=== PATIENT | female | born 1970 | race Caucasian/White ===

== ENCOUNTER 2018-10-21 07:35 | Emergency (ER) | payer SELFPAY ==
[2018-10-21 08:30] LABS: #Basophils 0.1 thou/uL (0.0-0.2); #Eosinphils 0.2 thou/uL (0.0-0.7); #Lymphocytes 2.3 thou/uL (1.20-3.40); #Monocytes 1.2 thou/uL (0.11-0.59); #Neutrophils 13.8 thou/uL (1.40-6.50); %Basophils 0.3 % (0.0-1.0); %Eosinophils 0.9 % (0.0-10.0); %Monocytes 6.7 % (0.0-10.0); %Neutrophils 79.1 % (42.0-75.0); Hemoglobin 17.4 g/dL (12.0-16.0); Mean Corpuscular HGB CONC 33.3 g/dL (32.0-36.0); Mean Corpuscular Hemoglobin 30.7 pg (27.0-31.0); Mean Corpuscular Volume 92.1 fL (78.0-98.0); Mean Platelet Volume 9.2 fL (7.4-10.4); Platelet Count 162 thou/uL (130-400); RBC Distribution Width 11.9 % (11.5-14.5); Red Blood Cell (RBC) Count 5.68 mill/uL (4.20-5.40); White Blood Cell (WBC) Count 17.4 thou/uL (4.8-10.8)
[2018-10-21] MEDS ORDERED: Ondansetron PF 4 MG/2 ML Vial ONE (08:43)
[2018-10-21] MEDS ORDERED: Lidocaine 1% PF 5 ML VIAL ONE (08:46)
[2018-10-21 08:50] LABS: ALT (SGPT) 77 U/L (8-55); AST (SGOT) 44 U/L (5-34); Albumin 3.4 g/dL (3.5-5.0); Alkaline Phosphatase 184 U/L (40-150); Anion Gap 16 mmol/L (10-20); BUN (Urea Nitrogen) 16 mg/dL (7.0-18.7); Bilirubin, Total 0.7 mg/dL (0.2-1.2); Calc. Creatinine Clearance 0 mL/min (70-130); Calcium 9.4 mg/dL (7.8-10.44); Carbon Dioxide 22 mmol/L (22-29); Chloride 98 mmol/L (98-107); Estimated GFR-MDRD 85; Globulin 4.8 g/dL (2.4-3.5); Glucose 370 mg/dL (70-105); Potassium 4.1 mmol/L (3.5-5.1); Protein, Total 8.2 g/dL (6.0-8.3); Sodium 132 mmol/L (136-145)
[2018-10-21] MEDS ORDERED: Lidocaine 1% (PF) 30 ML VIAL ONE (09:00)
[2018-10-21] MEDS ORDERED: Morphine 4 MG/ML VIAL ONE (09:12)
--- NOTE | 2018-10-21 09:20 | RAD ---
PA AND LATERAL VIEWS OF CHEST: Date: 10/21/18 HISTORY: Flu-like symptoms, cough, dyspnea, diabetes, and hypertension. FINDINGS: The heart size is normal. The lungs are expanded without focal areas of consolidation, pneumothoraces , or pleural effusion. No acute osseous abnormalities are seen. IMPRESSION: No radiographic evidence of acute cardiopulmonary process. POS: [facility]
[2018-10-21 10:21] LABS: Bilirubin Negative (Negative); Blood, Urine Large (Negative); Clarity CLOUDY (Clear); Glucose, Urine (Dipstick) >=1000 mg/dL (Negative); Leukocyte Small (Negative); Nitrite Negative (Negative); Protein, Urine (Dipstick) 30 mg/dL (Neg-Trace); Specific Gravity, Urine 1.041 (1.002-1.036); Urobilinogen 0.2 mg/dL (0.2-1.0); pH, Urine 5.5 (5.0-9.0)
[2018-10-21 10:23] LABS: Bacteria/HPF None Seen HPF (None Seen); Hyaline Casts/LPF 0-3 HYALINE CAST LPF (0-3 Hyaline); Pathc Cast-AUWi Flag 0.43 (0-2.49); Squamous Epithelial 0-3 HPF (0-3); WBC/HPF 21-50 HPF (0-3)
[2018-10-21 10:36] LABS: Yeast-All Forms 1+ HPF (None Seen)
[2018-10-21] MEDS ORDERED: Insulin Regular 300 UNITS/3 ML VIAL ONE (10:40)
== END 2018-10-21 11:15 | disposition home or self-care (01) ==
LOC: ERS 07:35
DX: L02.215 Cutaneous abscess of perineum (principal); B37.3 Candidiasis of vulva and vagina; E11.65 Type 2 diabetes mellitus with hyperglycemia; N39.0 Urinary tract infection, site not specified; E78.5 Hyperlipidemia, unspecified; I10 Essential (primary) hypertension; F17.210 Nicotine dependence, cigarettes, uncomplicated
CPT/HCPCS: 36415; 56405; 71046; 80053; 81003; 81015; 85025; 87070; 87077; 87086; 96365; 96375; J1815; J2001; J2270; J2405

== ENCOUNTER 2018-10-25 09:24 | Emergency (ER) | payer SELFPAY ==
[2018-10-25] MEDS ORDERED: Lidocaine 1% (PF) 30 ML VIAL ONE (09:51)
[2018-10-25] MEDS ORDERED: HYDROcodone/Acetaminophen 10/325 mg Tablet ONE (09:57)
[2018-10-25] MEDS ORDERED: Ondansetron ODT 4 MG TAB ONE (10:02)
[2018-10-25] MEDS ORDERED: Bacitracin Zinc 1 Packet ONE (10:48)
== END 2018-10-25 11:13 | disposition home or self-care (01) ==
LOC: ERS 09:24
DX: Z48.817 Encounter for surgical aftercare following surgery on the skin and subcutaneous tissue (principal); E11.9 Type 2 diabetes mellitus without complications; E78.5 Hyperlipidemia, unspecified; I10 Essential (primary) hypertension; F32.9 Major depressive disorder, single episode, unspecified; F17.210 Nicotine dependence, cigarettes, uncomplicated; Z79.899 Other long term (current) drug therapy; Z71.6 Tobacco abuse counseling
CPT/HCPCS: 56405; 99406; J2001; Q0162

== ENCOUNTER 2018-10-27 08:44 | Emergency (ER) | payer SELFPAY ==
[2018-10-27] MEDS ORDERED: HYDROcodone/Acetaminophen 5/325 mg Tablet ONE (09:15)
== END 2018-10-27 09:51 | disposition home or self-care (01) ==
LOC: ERS 08:44
DX: N76.4 Abscess of vulva (principal); E11.9 Type 2 diabetes mellitus without complications; I10 Essential (primary) hypertension; F32.9 Major depressive disorder, single episode, unspecified; F17.210 Nicotine dependence, cigarettes, uncomplicated; Z79.899 Other long term (current) drug therapy
CPT/HCPCS: 99282

== ENCOUNTER 2019-04-12 08:08 | Emergency (ER) | payer SELFPAY ==
--- NOTE | 2019-04-12 10:11 | CT ---
CT Brain WO Con History: Blurry vision Comparison: None. Findings: No acute hemorrhage or infarct. No midline shift or mass effect. Ventricular size and extra -axial CSF spaces are normal. Calvarium is intact. Paranasal sinuses and mastoids are clear. Impression: No acute intracranial abnormality.
[2019-04-12 10:15] LABS: #Eosinphils 0.3 thou/uL (0.0-0.7); #Lymphocytes 2.4 thou/uL (1.20-3.40); #Monocytes 0.4 thou/uL (0.11-0.59); #Neutrophils 5.4 thou/uL (1.40-6.50); %Basophils 0.6 % (0.0-1.0); %Eosinophils 3.1 % (0.0-10.0); %Lymphocytes 28.5 % (21.0-51.0); %Monocytes 4.6 % (0.0-10.0); %Neutrophils 63.3 % (42.0-75.0); Hemoglobin 16.3 g/dL (12.0-16.0); Mean Corpuscular HGB CONC 32.9 g/dL (32.0-36.0); Mean Corpuscular Hemoglobin 31.1 pg (27.0-31.0); Mean Corpuscular Volume 94.6 fL (78.0-98.0); Mean Platelet Volume 9.5 fL (7.4-10.4); Platelet Count 117 thou/uL (130-400); RBC Distribution Width 12.1 % (11.5-14.5); Red Blood Cell (RBC) Count 5.25 mill/uL (4.20-5.40); White Blood Cell (WBC) Count 8.6 thou/uL (4.8-10.8)
[2019-04-12 10:30] LABS: ALT (SGPT) 145 U/L (8-55); AST (SGOT) 110 U/L (5-34); Albumin 3.4 g/dL (3.5-5.0); Alkaline Phosphatase 260 U/L (40-150); Anion Gap 9 mmol/L (10-20); BUN (Urea Nitrogen) 18 mg/dL (7.0-18.7); Bilirubin, Total 0.5 mg/dL (0.2-1.2); Calc. Creatinine Clearance 0 mL/min (70-130); Calcium 9.4 mg/dL (7.8-10.44); Carbon Dioxide 29 mmol/L (22-29); Chloride 101 mmol/L (98-107); Estimated GFR-MDRD Greater than 90; Globulin 4.1 g/dL (2.4-3.5); Glucose 218 mg/dL (70-105); Potassium 4.6 mmol/L (3.5-5.1); Protein, Total 7.5 g/dL (6.0-8.3); Sodium 134 mmol/L (136-145)
[2019-04-12] MEDS ORDERED: Aspirin Chewable 81 MG TAB ONE (11:15)
--- NOTE | 2019-04-16 16:10 | EKG ---
Test Reason : BLURRED VISION Blood Pressure : / mmHG Vent. Rate : 063 BPM Atrial Rate : 063 BPM P-R Int : 126 ms QRS Dur : 092 ms QT Int : 442 ms P-R-T Axes : 048 -33 062 degrees QTc Int : 452 ms Normal sinus rhythm Possible Left atrial enlargement Left axis deviation Abnormal ECG Confirmed by BJ URRUTIA M.D. ([id number]), newspaper editor managing ROSANA HARPER ([id number]) on 04/16/2019 4:10:03 PM Referred By: Confirmed By:BJ URRUTIA M.D.
== END 2019-04-12 12:45 | disposition home or self-care (01) ==
LOC: ERS 08:08
DX: H53.8 Other visual disturbances (principal); E11.9 Type 2 diabetes mellitus without complications; I10 Essential (primary) hypertension; F17.210 Nicotine dependence, cigarettes, uncomplicated; Z79.899 Other long term (current) drug therapy; Z79.4 Long term (current) use of insulin
CPT/HCPCS: 36415; 36416; 70450; 80053; 84484; 85025; 93005

== ENCOUNTER 2019-11-29 09:17 | Outpatient (CLI) | payer OTHER ==
--- NOTE | 2019-11-29 10:29 | CT ---
CT ABDOMEN AND PELVIS WITH IV CONTRAST 11/29/2019 CLINICAL INFORMATION: Secondary malignant neoplasm of bone. Chronic viral hepatitis. COMPARISON: 06/30/2017 Technique: Multiple contiguous axial CT images are obtained through the abdomen and pelvis with IV contrast. Cor onal reformatted images are provided. FINDINGS: Lower Chest: No pulmonary nodule is seen at either lung base. Lung bases are clear. Vessels: Mild vascular calcifications and atherosclerotic plaque is seen in the abdominal aorta and i nvolving the iliac arteries. Abdomen: Portal vein:There is diminished attenuation seen within the portal vein and superior mesenteric vein which appears to to be related to mixing of contrast. Gallbladder: Not visualized and likely surgically absent. Liver: Slight peripheral nodular contour which may be related to cirrhosis. Spleen: Upper limits of normal in size but otherwise normal in appearance. Pancreas: within normal limits. Adrenals: within normal limits. Kidneys: A subcentimeter too small to characterize hypodense lesion is seen in the superior pole left kidney. Kidneys otherwise demonstrate a normal CT appearance bilaterally with mild lobulated appearance which may related to lobulation. Bowel: Normal in caliber. The ascending colon is adjacent to the lateral aspect of the lower portion of the right hepatic lobe. Appendix: Normal in caliber. Peritoneum: No ascites or free air; no fluid collection. Mesentery and Retroperitoneum: No enlarged mesenteric or retroperitoneal lymph nodes. Abdominal Wall: within normal limits. Pelvis: Reproductive Organs: No pelvic masses. Pelvis within normal limits. Bladder: Decompressed. Bones: No suspicious sclerotic or lytic osseous lesions are identified. IMPRESSION: 1. No acute findings are seen in the abdomen or pelvis. 2. Slight nodular contour of the liver which can be seen with cirrhosis. The portal veins are patent. 3. No CT evidence of metastatic disease.
--- NOTE | 2019-11-29 12:24 | MRI ---
MRI OF THE LEFT KNEE WITH AND WITHOUT IV CONTRAST: INDICATION: History of secondary malignancy of the bone and a chronic viral hepatitis C. CONTRAST: 12 cc of MultiHance. COMPARISON: Left knee radiograph dated 10/22/2019. FINDINGS: As seen on the comparison radiograph is a split depression-type lateral tibial plateau fracture with approximately 2.1 cm of depression of the central lateral aspect of the tibial plateau articular surface. There is extensive comminution involving the metaphysis of the proximal tibia extending into the tibial spines and along the posterior medial aspect of the medial tibial plateau without significant intraarticular gap. The comminution involving the posterior aspect of the medial tibial p lateau does have approximately 2 mm of articular surface step-off best seen on image 6 of series 7. No visible abnormal enhancing mass is seen involving the proximal metaphysis to suggest a pathologic fracture. Visualized aspects of the menisci, ACL, PCL, MCL and lateral collateral ligaments are intact. The extensor mechanism is intact. There is mild osteoarthrosis involving the left knee with m oderate chondrosis involving the patellofemoral compartment as well as the medial femoral tibial joint compartment. There is enhancement of the marrow space of the proximal tibia which is likely rel ated to reactive healing bone from the patient's trauma. IMPRESSION: Heavily comminuted split depression-type lateral tibial plateau fracture with fracture comminution ex tending into the posterior aspect of the medial tibial plateau with mild articular surface depression. There is no evidence on this MR examination to suggest a pathologic fracture. This appear s to be an acute traumatic injury and possibly from insufficiency of the bone. Transcribed Date/Time: 11/29/2019 1:49 PM
[2019-11-29] MEDS ORDERED: Iopamidol 370 76% 100 ML VIAL ONE (13:55)
== END 2019-11-29 09:18 | disposition home or self-care (01) ==
LOC: CT 09:17
PROVIDERS: ATTEND Internal Medicine Hematology & Oncology
DX: C79.51 Secondary malignant neoplasm of bone (principal); C80.1 Malignant (primary) neoplasm, unspecified; B18.2 Chronic viral hepatitis C; S82.142A Displaced bicondylar fracture of left tibia, initial encounter for closed fracture; K76.89 Other specified diseases of liver
CPT/HCPCS: 74177; Q9967

== ENCOUNTER 2019-12-15 10:28 | Outpatient (CLI) | payer OTHER ==
[2019-12-15 14:58] LABS: #Basophils 0.1 thou/uL (0.0-0.2); #Eosinphils 0.2 thou/uL (0.0-0.7); #Lymphocytes 2.7 thou/uL (1.20-3.40); #Monocytes 0.5 thou/uL (0.11-0.59); #Neutrophils 6.9 thou/uL (1.40-6.50); %Basophils 0.8 % (0.0-1.0); %Eosinophils 2.2 % (0.0-10.0); %Lymphocytes 25.9 % (21.0-51.0); %Monocytes 4.4 % (0.0-10.0); %Neutrophils 66.8 % (42.0-75.0); Hemoglobin 15.8 g/dL (12.0-16.0); Mean Corpuscular HGB CONC 32.5 g/dL (32.0-36.0); Mean Corpuscular Hemoglobin 30.4 pg (27.0-31.0); Mean Corpuscular Volume 93.6 fL (78.0-98.0); Mean Platelet Volume 8.9 fL (7.4-10.4); Platelet Count 153 thou/uL (130-400); RBC Distribution Width 12.3 % (11.5-14.5); Red Blood Cell (RBC) Count 5.19 mill/uL (4.20-5.40); White Blood Cell (WBC) Count 10.3 thou/uL (4.8-10.8)
[2019-12-15 15:09] LABS: Bacteria/HPF None Seen HPF (None Seen); Bilirubin Negative (Negative); Blood, Urine Trace (Negative); Clarity Clear (Clear); Glucose, Urine (Dipstick) 30 mg/dL (Negative); Leukocyte Negative Leu/uL (Negative); Nitrite Negative (Negative); Protein, Urine (Dipstick) 70 mg/dL (Neg-Trace); WBC/HPF 0-3 HPF (0-3)
[2019-12-15 15:10] LABS: Prothrombin Time 12.8 SEC (12.0-14.7)
[2019-12-15 15:22] LABS: Anion Gap 10 mmol/L (10-20); BUN (Urea Nitrogen) 15 mg/dL (7.0-18.7); Calc. Creatinine Clearance 0 mL/min (70-130); Calcium 9.4 mg/dL (7.8-10.44); Carbon Dioxide 29 mmol/L (22-29); Chloride 102 mmol/L (98-107); Estimated GFR-MDRD 90; Glucose 169 mg/dL (70-105); Potassium 4.1 mmol/L (3.5-5.1); Sodium 137 mmol/L (136-145)
== END 2019-12-15 10:29 | disposition home or self-care (01) ==
LOC: LABBT 10:28
PROVIDERS: ATTEND Orthopaedic Surgery
DX: Z01.818 Encounter for other preprocedural examination (principal); S82.142A Displaced bicondylar fracture of left tibia, initial encounter for closed fracture
CPT/HCPCS: 80048; 81001; 85025; 85610; 87081; 93005; 93010

== ENCOUNTER 2020-05-11 05:06 | Outpatient (CLI) | payer OTHER ==
[2020-05-11 14:00] LABS: #Basophils 0.1 thou/uL (0.0-0.2); #Eosinphils 0.2 thou/uL (0.0-0.7); #Lymphocytes 2.1 thou/uL (1.20-3.40); #Monocytes 0.4 thou/uL (0.11-0.59); #Neutrophils 5.4 thou/uL (1.40-6.50); %Basophils 0.8 % (0.0-1.0); %Eosinophils 2.6 % (0.0-10.0); %Lymphocytes 25.6 % (21.0-51.0); %Monocytes 4.5 % (0.0-10.0); %Neutrophils 66.5 % (42.0-75.0); Hemoglobin 15.5 g/dL (12.0-16.0); Mean Corpuscular Hemoglobin 29.4 pg (27.0-31.0); Mean Corpuscular Volume 91.7 fL (78.0-98.0); Mean Platelet Volume 9.7 fL (7.4-10.4); Platelet Count 138 thou/uL (130-400); RBC Distribution Width 12.9 % (11.5-14.5); Red Blood Cell (RBC) Count 5.27 mill/uL (4.20-5.40); White Blood Cell (WBC) Count 8.1 thou/uL (4.8-10.8)
[2020-05-11 14:02] LABS: INR-International Normal Ratio 0.9; Prothrombin Time 12.4 sec (12.0-14.7)
[2020-05-11 14:05] LABS: Anion Gap 10 mmol/L (10-20); BUN (Urea Nitrogen) 12 mg/dL (9.8-20.1); Calc. Creatinine Clearance 0 mL/min (70-130); Calcium 8.7 mg/dL (7.8-10.44); Carbon Dioxide 29 mmol/L (22-29); Chloride 101 mmol/L (98-107); Estimated GFR-MDRD 72; Glucose 377 mg/dL (70-105); Potassium 4.1 mmol/L (3.5-5.1); Sodium 136 mmol/L (136-145)
[2020-05-11 15:06] LABS: Bacteria/HPF None Seen HPF (None Seen); Bilirubin Negative (Negative); Blood, Urine 1+ (Negative); Clarity Clear (Clear); Glucose, Urine (Dipstick) Greater than 1000 mg/dL (Negative); Ketone, Urine Negative (Negative); Leukocyte Negative Leu/uL (Negative); Nitrite Negative (Negative); Protein, Urine (Dipstick) 20 mg/dL (Neg-Trace); Specific Gravity, Urine 1.035 (1.002-1.036); WBC/HPF 0-3 HPF (0-3)
[2020-05-12 12:37] LABS: SARS-CoV-2 MS2 Positive; SARS-CoV-2 N Gene Negative; SARS-CoV-2 S Gene Negative; SARS-CoV-2 orf1ab Negative
== END 2020-05-11 05:07 | disposition home or self-care (01) ==
LOC: LABBT 05:06
PROVIDERS: ATTEND Orthopaedic Surgery
DX: Z01.818 Encounter for other preprocedural examination (principal); Z11.59 Encounter for screening for other viral diseases; S82.142A Displaced bicondylar fracture of left tibia, initial encounter for closed fracture
CPT/HCPCS: 80048; 81001; 85025; 85610; 87081; 87635; 93005; 93010; U0003

== ENCOUNTER 2020-05-11 11:15 | Inpatient (IN) | payer OTHER ==
[2020-05-15] MEDS ORDERED: Midazolam HCl 2 mg/2 ml Vial ONE ×2 (09:34→11:18)
[2020-05-15] MEDS ORDERED: Fentanyl 100 MCG/2 ML VIAL ONE ×4 (09:34→13:36)
[2020-05-15] MEDS ORDERED: Sodium Chloride 0.9% 100 ML ONE (09:46)
[2020-05-15] MEDS ORDERED: Tranexamic Acid 1,000 MG/10 ML VIAL ONE (09:46)
[2020-05-15] MEDS ORDERED: Vancomycin 1 GM/200 ML BAG ONE (09:46)
[2020-05-15] MEDS ORDERED: diphenhydrAMINE 25 MG CAP PO PRN (10:52)
[2020-05-15] MEDS ORDERED: Ondansetron PF 4 MG/2 ML Vial IVP PRN ×2 (10:52→11:03)
[2020-05-15] MEDS ORDERED: Zolpidem Tartrate 5 MG TAB PO PRN ×2 (10:52→11:03)
[2020-05-15] MEDS ORDERED: Promethazine HCl 25 MG/ML VIAL IM PRN ×3 (10:52→12:48)
[2020-05-15] MEDS ORDERED: Acetaminophen 325 MG TAB PO PRN ×2 (10:52→11:03)
[2020-05-15] MEDS ORDERED: HYDROcodone/Acetaminophen 10/325 mg Tablet PO PRN ×2 (10:52)
[2020-05-15] MEDS ORDERED: traMADol HCl 50 MG TAB PO PRN ×2 (11:03)
[2020-05-15] MEDS ORDERED: Ropivacaine HCl/PF 250 ML in Premix Bag 1 BAG NERVE BLCK SCH (11:03)
[2020-05-15] MEDS ORDERED: Fentanyl 100 MCG/2 ML VIAL IV PRN (11:03)
[2020-05-15] MEDS ORDERED: Bupivacaine HCl 0.5%/Epinephrine 1:200,000/PF 30 ml Vial ONE ×2 (12:19→12:20)
[2020-05-15] MEDS ORDERED: Dexamethasone 20 MG/5 ML VIAL ONE (12:19)
[2020-05-15] MEDS ORDERED: Ketorolac Tromethamine 30 MG/ML VIAL ONE (12:19)
[2020-05-15] MEDS ORDERED: EPHEDRINE 25 MG/5 ML SYRINGE ONE (12:19)
[2020-05-15] MEDS ORDERED: Ondansetron PF 4 MG/2 ML Vial ONE (12:19)
[2020-05-15] MEDS ORDERED: PROPOFOL 200 MG/20 ML VIAL ONE (12:19)
[2020-05-15] MEDS ORDERED: Ropivacaine 0.2% HCl/PF (40 MG/20 ML VIAL) ONE (12:20)
[2020-05-15] MEDS ORDERED: Ondansetron HCl/PF 4 MG/2 ML Vial IVP PRN (12:48)
[2020-05-15] MEDS ORDERED: Promethazine HCl 25 MG/ML VIAL SLOW IVP PRN (12:48)
[2020-05-15] MEDS ORDERED: Ketorolac Tromethamine 30 MG/ML VIAL IVP SCH (14:00)
--- NOTE | 2020-05-15 14:16 | RAD ---
LEFT KNEE TWO VIEWS: 05/15/20 HISTORY: Postop. Films show placement of a total knee prosthesis in good position. No fracture. Air is seen within the joint spaces soft tissues. IMPRESSION: Placement of total knee prosthesis. POS: [facility]
--- NOTE | 2020-05-15 14:20 | OP ---
DATE OF PROCEDURE: 05/15/2020 PREOPERATIVE DIAGNOSIS: Posttraumatic arthritis, left knee. POSTOPERATIVE DIAGNOSIS: Posttraumatic arthritis, left knee. PROCEDURES: Left total knee arthroplasty using Pj Triathlon 2 tibia baseplate with a 50 mm stem, universal baseplate, 9 mm CS X3 polyethylene, #2 femur and an S27 patella. CHILDREN LIBRARIAN: Dr. Fields. SPECIMEN: None. DRAINS: None. COMPLICATION: None. TOURNIQUET TIME: 51 minutes. PROCEDURE IN DETAIL: After informed consent was obtained in the preoperative holding area, the patient was taken to the operative suite where general anesthesia was induced. Once adequate level of general anesthesia was obtained, the patient was positioned and a well-padded tourniquet was placed around the left proximal thigh. The left lower extremity was then prepped and draped in the usual sterile fashion. Prior to exsanguination, a time-out was called and all members of the surgical team agreed upon site, surgeon, and patient. The extremity was then exsanguinated and the tourniquet was raised. A midline longitudinal incision was then made directly over the patella extending 2 fingerbreadths above the superior pole of the patella and 2 fingerbreadths inferior to the inferior patellar pole of the patella. Deeper subcutaneous layers were dissected sharply and local bleeding was controlled with Bovie electrocautery. A quad tendon longitudinal split was then made sharply and a median parapatellar arthrotomy was carried out both sharp and with Bovie electrocautery, carried down to 1 fingerbreadth medial to the tibial tubercle. The knee was then placed into flexion and the patella was everted nicely, and a copious fat pad ectomy was performed allowing for greater exposure of the tibia. The computer-assisted distal femoral fiducial was then placed and pinned firmly, and the distal femoral cutting guide was pinned firmly into place. The oscillating saw was then used to remove the appropriate amount of bone. The 4-in-1 cutting block was then placed on the distal femur and the oscillating saw was used to remove the appropriate amount of bone off the anterior, posterior, and chamfer cuts. After completion of bone cuts, the anterior cruciate ligament was resected sharply and the posterior cruciate ligament retractor was placed and the tibia was subluxed for better exposure. Partial meniscectomies were carried out, and the tibial computer-assisted fiducial was pinned, and the cutting guide was placed. Oscillating saw was then used to remove the bone, with Hohmann retractors used to take care and protect the collateral ligaments. After the tibial resection was performed, a laminar meter/relay technician was placed in between the freshened bone cuts. The knee placed at 90 degrees and further bilateral meniscectomies were carried out, and the curved osteotome and curettage were used to remove any excess bone spurs in the posterior compartment. The trial femoral component, tibial baseplate were placed with the appropriate polyethylene trial insert with an appropriate polyethylene spacer and patellar button. The knee was taken through full range of motion with flexion and extension from 0 to 90 degrees and patellar broach squarely in the trochlea without any squinting or subluxation noted. The knee was also stable to varus and valgus stressing at 0, 15, 45, and 90 degrees of flexion. The drawer was negative. All trial components were then removed and the keel punch was used to provide the appropriate defect in the tibia with a mallet. The freshened bone cuts were copiously irrigated with pulsatile lavage of about 1.5 L to remove all excess debris. The freshened bone cuts were then dried with suction and lap sponge. The knee was placed in flexion and retractors were placed to provide access to all bone cuts. Tobramycin-impregnated methyl methacrylate cement was then placed on the freshened bone cuts and implants which were malleted firmly into place. Curettage and [place] elevators were used to remove any excess bone cement. The knee was placed into full extension and the patellar button was placed under compression, and the cement was allowed to cure. Once completed, the components were again taken through full range of motion and copious irrigation of the knee was carried out with another liter of normal saline. All components were inspected fully with full range of motion and varus and valgus stressing. There was no laxity noted and full extension was observed clinically. Primary closure was accomplished with #2 interrupted Vicryl stitch of the arthrotomy defect. This was oversewn with a #2 running Quill barbed stitch. The gravitational platelet system was then injected into the arthrotomy prior to closure. The subcutaneous layer was then closed with a running 0 barbed Monocryl stitch and skin closure accomplished with a running subcuticular 3-0 Monocryl barbed Quill stitch and augmented with cement on the skin. Tourniquet was lowered. Good spontaneous return of distal pulses was noted clinically and a sterile dressing was applied to the incision. The procedure was terminated without any complications. The patient was awakened in the operative suite and the was removed, and the patient was taken to the recovery room in stable condition. Job ID: [id number]
[2020-05-15] MEDS: Ketorolac Tromethamine 30 MG/ML VIAL IVP SCH ×3 (16:30→23:52)
[2020-05-15] MEDS: CEFAZOLIN 2 GM in Premix Bag 1 BAG IVPB SCH ×2 (16:32→23:52)
[2020-05-15] MEDS: HumaLOG 300 UNITS/3 ML VIAL SC SCH ×2 (16:33→16:45)
[2020-05-15] MEDS: Sodium Chloride 0.9% 1,000 ML IV SCH ×2 (16:34→21:40)
[2020-05-15] MEDS: HYDROcodone/Acetaminophen 10/325 mg Tablet PO PRN ×2 (16:52→21:37)
[2020-05-15] MEDS ORDERED: Dextrose 50% Abboject 50 ML SYRINGE SLOW IVP PRN (17:19)
[2020-05-15] MEDS ORDERED: Dextrose 5% in Water 1,000 ML IV PRN (17:19)
[2020-05-15 17:49] VITALS: BMI 31.1
--- NOTE | 2020-05-15 18:11 | CON ---
DATE OF CONSULTATION: PRIMARY CARE PROVIDER: Ally Fatima DO CHIEF COMPLAINT: Management of medical comorbidities. HISTORY OF PRESENT ILLNESS: Ms. Fulton is a pleasant 50-year-old lady who was seen at [facility] on May 15, 2020. Earlier today, she underwent left total knee arthroplasty. Hospitalist Service was consulted for management of medical comorbidities. The patient denies any chest pain or shortness of breath. She reports that the pain in her left knee is mild. She denies any fevers or chills. She denies any nausea, vomiting, diarrhea, or abdominal pain. REVIEW OF SYSTEMS: All systems were reviewed and found to be negative except for the pertinent positives as mentioned above. PAST MEDICAL HISTORY: Diabetes mellitus, hypertension, diabetic neuropathy, diabetic retinopathy, and dyslipidemia. PAST SURGICAL HISTORY: Cholecystectomy in the past and left knee surgery today. SOCIAL HISTORY: The patient denies tobacco use, alcohol use, or recreational drug use. FAMILY HISTORY: No family history of premature coronary artery disease. ALLERGIES: NO KNOWN DRUG ALLERGIES. HOME MEDICATIONS: 1. Amlodipine 10 mg daily. 2. Fluoxetine 20 mg daily. 3. Gabapentin 600 mg at bedtime. 4. NovoLog insulin 5 units 3 times a day. 5. Levemir insulin 20 units daily. 6. Losartan 50 mg daily. PHYSICAL EXAMINATION: GENERAL: On examination, Ms. Fulton is awake and alert, not in acute distress. VITAL SIGNS: Stable. EYES: No scleral icterus. No conjunctival pallor. ENT: Moist mucosal membranes. No oropharyngeal erythema or exudates. NECK: Supple, nontender, trachea is midline. RESPIRATORY: Accessory muscles of breathing are not active. Chest wall movements are symmetric bilaterally. Lungs are clear to auscultation without wheeze, rhonchi, or crepitations. CARDIOVASCULAR: S1 and S2 are heard, regular. Peripheral pulses palpable. ABDOMEN: Soft and nontender. Bowel sounds are heard. NEUROLOGIC: Cranial nerves 2 through 12 are intact. MUSCULOSKELETAL: Status post left knee surgery. SKIN: No rashes or subcutaneous nodules. LYMPHATIC: No cervical lymphadenopathy. PSYCHIATRIC: Normal mood, normal affect, the patient is oriented to person, place, and time. LABORATORY DATA: Ms. Fulton's labs and investigations were reviewed. On May 11, 2020, she had an unremarkable CBC, INR 0.9, elevated blood sugar of 377, otherwise unremarkable basic metabolic profile and urinalysis that were negative for nitrite and leukocyte esterase. COVID-19 PCR test was negative. ASSESSMENT AND PLAN: Ms. Fulton is a pleasant 50-year-old lady who was seen at [facility] on May 15, 2020. Her problem list includes: 1. Hypertension: Amlodipine and losartan will be started. We will monitor vital signs and titrate antihypertensives as needed. 2. Diabetes mellitus type 2: Resume home insulin, start Accu-Cheks and insulin sliding scale. 3. Dyslipidemia: The patient does not appear to be taking any statin at this time, although she was on rosuvastatin in the past. We will advise her to follow up with primary care provider for management of dyslipidemia. 4. Arthritis: Status post left knee surgery. Deep venous thrombosis prophylaxis and pain management per Orthopedic Surgery Service. 5. Diabetic neuropathy: Continue gabapentin. 6. Diabetic retinopathy: Stable, the patient to follow up with Ophthalmology as outpatient. Many thanks for allowing me to participate in your patient's care. Please feel free to contact me with any questions or concerns. LEVEL OF RISK: Moderate. LEVEL OF COMPLEXITY: Moderate. Job ID: [id number]
[2020-05-15] MEDS: Vancomycin HCl 1.25 GM in Sodium Chloride 0.9% 250 ML 250 ML IVPB SCH (21:36)
[2020-05-15] MEDS: Aspirin 81 mg Enteric Coated Tablet PO SCH (21:37)
[2020-05-15] MEDS: Gabapentin 300 MG CAP PO SCH (21:37)
[2020-05-15] MEDS ORDERED: HumaLOG 300 UNITS/3 ML VIAL SC PRN (22:03)
[2020-05-16] MEDS: HYDROcodone/Acetaminophen 10/325 mg Tablet PO PRN ×5 (02:30→21:24)
[2020-05-16] MEDS: Sodium Chloride 0.9% 1,000 ML IV SCH ×2 (04:38→18:01)
[2020-05-16] MEDS: Ketorolac Tromethamine 30 MG/ML VIAL IVP SCH ×4 (05:07→23:39)
[2020-05-16 05:24] LABS: Hemoglobin 12.9 g/dL (12.0-16.0); Mean Corpuscular HGB CONC 30.8 g/dL (32.0-36.0); Mean Corpuscular Hemoglobin 28.6 pg (27.0-31.0); Mean Corpuscular Volume 92.9 fL (78.0-98.0); Mean Platelet Volume 9.4 fL (7.4-10.4); Platelet Count 97 thou/uL (130-400); RBC Distribution Width 12.6 % (11.5-14.5); White Blood Cell (WBC) Count 12.9 thou/uL (4.8-10.8)
[2020-05-16] MEDS: HumaLOG 300 UNITS/3 ML VIAL SC PRN ×2 (06:01→11:57)
[2020-05-16] MEDS: Losartan 25 MG TAB PO SCH (08:39)
[2020-05-16] MEDS: Insulin Glargine 20 UNITS in Pre-Filled Syringe 1 EACH SC SCH (08:39)
[2020-05-16] MEDS: Senokot S 8.6-50 MG TAB PO SCH ×2 (08:39→21:24)
[2020-05-16] MEDS: Aspirin 81 mg Enteric Coated Tablet PO SCH ×2 (08:40→21:24)
[2020-05-16] MEDS: HumaLOG 300 UNITS/3 ML VIAL SC SCH ×3 (08:40→17:27)
[2020-05-16] MEDS: Amlodipine 10 MG TAB PO SCH (08:40)
[2020-05-16] MEDS: Multivitamin W/ Minerals 1 TAB PO SCH (08:40)
[2020-05-16] MEDS: FLUoxetine HCl 20 MG CAP PO SCH (08:40)
[2020-05-16] MEDS: Ferrous Gluconate 324 MG TAB PO SCH ×2 (08:40→21:24)
[2020-05-16] MEDS: Vancomycin HCl 1.25 GM in Sodium Chloride 0.9% 250 ML 250 ML IVPB SCH ×2 (08:44→21:24)
[2020-05-16] MEDS ORDERED: Prevnar 13-Val Conj/PF 0.5 ML SYRINGE IM ONE (09:00)
[2020-05-16] MEDS ORDERED: Non-Formulary Item 1 EACH (Losartan Potassium [Losartan Potassium] 50 MG) PO SCH (09:00)
[2020-05-16] MEDS ORDERED: Non-Formulary Item 1 EACH (Insulin Detemir [Levemir Flextouch] 20 UNIT) SQ SCH (09:00)
--- NOTE | 2020-05-16 10:48 | PDOC.HOSPP ---
- Subjective Encounter Date: 05/16/20 Encounter Time: 11:15 Subjective: Patient seen for follow-up for Hypertension and Diabetes mellitus. She reports that L knee pain is improved to 5/10 and she has been ambulating with the assistance of PT. Patient denies any other complaints. - Objective Vital Signs & Weight: Vital Signs (12 hours) Temp Pulse Resp BP BP Pulse Ox 05/16/20 08:40 66 110/69 05/16/20 07:16 98.2 F 66 16 110/69 94 L 05/16/20 03:06 98.3 F 76 16 112/73 95 05/15/20 23:10 98.3 F 85 17 126/71 96 Weight Weight 154 lb I&O: 05/15/20 05/16/20 05/17/20 06:59 06:59 06:59 Intake Total 1580 Output Total 1900 Balance -320 Result Diagrams: 05/16/20 04:48 Additional Labs: Accuchecks 05/16/20 05/15/20 05/15/20 05:23 21:15 16:36 POC Glucose 310 H 362 H 312 H 05/15/20 05/15/20 14:06 09:32 POC Glucose 221 H 181 H Hospitalist ROS - Review of Systems Constitutional: denies: fever, chills, sweats, weakness Respiratory: denies: cough, shortness of breath Cardiovascular: denies: chest pain, palpitations, light headedness Gastrointestinal: denies: nausea, vomiting Genitourinary: denies: dysuria, frequency Neurological: denies: weakness, numbness - Medication Medications: Active Medications Generic Name Dose Route Start Last Admin Trade Name Freq PRN Reason Stop Dose Admin Hydrocodone Bitart/Acetaminophen 1 tab 05/15/20 11:03 05/16/20 02:30 [place] 10/325 PO 1 tab Q4H PRN Administration Pain (1-3) Hydrocodone Bitart/Acetaminophen 2 tab 05/15/20 11:03 05/16/20 08:44 [place] 10/325 PO 2 tab Q4H PRN Administration PAIN (4-6) Amlodipine Besylate 10 mg 05/16/20 09:00 05/16/20 08:40 Norvasc PO 10 mg DAILY ONEYDA Administration Aspirin 81 mg 05/15/20 21:00 05/16/20 08:40 Ecotrin PO 81 mg BID ONEYDA Administration Fentanyl 50 mcg 05/15/20 11:03 05/15/20 18:45 Sublimaze IV 50 mcg Q1H PRN Administration BREAKTHRU PAIN Ferrous Gluconate 324 mg 05/16/20 09:00 05/16/20 08:40 Fergon PO 324 mg BID ONEYDA Administration Fluoxetine HCl 20 mg 05/16/20 09:00 05/16/20 08:40 Prozac PO 20 mg DAILY ONEYDA Administration Gabapentin 600 mg 05/15/20 21:00 05/15/20 21:37 Neurontin PO 600 mg HS ONEYDA Administration Sodium Chloride 1,000 mls @ 100 mls/hr 05/15/20 11:00 05/16/20 04:38 Normal Saline 0.9% IV Not Given .Q10H ONEYDA Insulin Glargine 20 units/ 0.2 mls @ 0 mls/hr 05/16/20 09:00 05/16/20 08:39 Miscellaneous Medication SC 0.2 mls QAM ONEYDA Administration Vancomycin HCl 1.25 gm/ Sodium 250 mls @ 166.67 mls/hr 05/15/20 21:00 08:44 Chloride IVPB 05/17/20 09:00 250 mls Q12HR ONEYDA Administration Insulin Human Lispro 5 units 05/15/20 12:00 05/16/20 08:40 Humalog SC 5 unit TID-WM ONEYDA Administration Insulin Human Lispro 0 units 05/15/20 17:19 05/16/20 06:01 Humalog SC 5 unit .MILD SLIDING SCALE PRN Administration Mild Correctional Scale Insulin Human Lispro 0 units 05/15/20 22:03 05/15/20 22:29 Humalog SC 5 unit .BEDTIME SLIDING SC PRN Administration Bedtime Correctional Scale Iron/Minerals/Multivitamins 1 tab 05/16/20 09:00 05/16/20 08:40 Theragran M PO 1 tab DAILY ONEYDA Administration Ketorolac Tromethamine 30 mg 05/15/20 12:00 05/16/20 05:07 Toradol IVP 05/17/20 06:01 30 mg Q6HR ONEYAD Administration Losartan Potassium 50 mg 05/16/20 09:00 05/16/20 08:39 Cozaar PO 50 mg DAILY ONEYDA Administration Senna/Docusate Sodium 2 tab 05/16/20 09:00 05/16/20 08:39 Senokot S PO 2 tab BID ONEYDA Administration - Exam General Appearance: NAD, awake alert Eye: anicteric sclera ENT: normocephalic atraumatic, moist mucosa Neck: supple, symmetric Heart: RRR, no murmur, no gallops, no rubs, normal peripheral pulses Respiratory: CTAB, no wheezes, no rales Gastrointestinal: soft, non-tender Extremities: no cyanosis, no clubbing, no edema Neurological: cranial nerve grossly intact Psychiatric: normal affect, normal behavior, A&O x 3 Hosp A/P (1) Diabetes mellitus Code(s): E11.9 - TYPE 2 DIABETES MELLITUS WITHOUT COMPLICATIONS Status: Chronic Qualifiers: Diabetes mellitus type: type 2 Diabetes mellitus termite control servicer insulin use: with termite control servicer use Diabetes mellitus complication status: with ophthalmic complications Diabetes mellitus complication detail: with diabetic retinopathy (2) HTN (hypertension) Code(s): I10 - ESSENTIAL (PRIMARY) HYPERTENSION Status: Chronic (3) Dyslipidemia Code(s): E78.5 - HYPERLIPIDEMIA, UNSPECIFIED Status: Chronic (4) Arthritis Code(s): M19.90 - UNSPECIFIED OSTEOARTHRITIS, UNSPECIFIED SITE Status: Chronic (5) Neuropathy Code(s): G62.9 - POLYNEUROPATHY, UNSPECIFIED Status: Chronic - Plan old records reviewed/req, PT/OT, out of bed/ambulate Continue Amlodipine/Losartan for HTN; monitor vital signs and titrate antihypertensives accordingly Continue Accu-checks and sliding scale insulin Patient advised to f/u with PCP about dyslipidemia and starting a statin S/P L knee surgery: DVT prophylaxis and pain management per orthopedic service Continue gabapentin for diabetic neuropathy Follow-up with ophthalmology as outpatient regarding diabetic retinopathy
--- NOTE | 2020-05-16 16:54 | PRG ---
DATE OF SERVICE: 05/16/2020 SUBJECTIVE: Liss is a 50-year-old female postop day 1 from left total knee arthroplasty. She is doing exceptionally well. She is quite happy with her postoperative results. She ambulated greater than 100 feet. OBJECTIVE: VITAL SIGNS: Temperature 97.7, pulse 67, respiratory rate 16, and blood pressure 102/58. NEUROLOGIC: She is alert, oriented, responsive, appropriate with examiner, pleasant and cogent. She is neurovascularly intact in the left lower extremity. LABORATORY DATA: Hemoglobin and hematocrit 12.9 and 41.8. IMPRESSION: A 50-year-old female, postoperative day 1, left total knee arthroplasty, doing well. PLAN: Continue current care. Probable discharge to home tomorrow. Job ID: [id number]
[2020-05-16] MEDS: Gabapentin 300 MG CAP PO SCH (21:24)
[2020-05-17] MEDS: Sodium Chloride 0.9% 1,000 ML IV SCH (02:51)
[2020-05-17] MEDS: HYDROcodone/Acetaminophen 10/325 mg Tablet PO PRN ×2 (03:33→09:00)
[2020-05-17 03:58] VITALS: TEMP 97.7
[2020-05-17] MEDS: Ketorolac Tromethamine 30 MG/ML VIAL IVP SCH (05:56)
[2020-05-17 08:41] VITALS: BP 112/76
[2020-05-17] MEDS: Senokot S 8.6-50 MG TAB PO SCH (09:02)
[2020-05-17] MEDS: Multivitamin W/ Minerals 1 TAB PO SCH (09:02)
[2020-05-17] MEDS: FLUoxetine HCl 20 MG CAP PO SCH (09:03)
[2020-05-17] MEDS: Ferrous Gluconate 324 MG TAB PO SCH (09:03)
[2020-05-17] MEDS: Aspirin 81 mg Enteric Coated Tablet PO SCH (09:03)
[2020-05-17] MEDS: HumaLOG 300 UNITS/3 ML VIAL SC SCH (09:03)
[2020-05-17] MEDS: Amlodipine 10 MG TAB PO SCH (09:04)
[2020-05-17] MEDS: Insulin Glargine 20 UNITS in Pre-Filled Syringe 1 EACH SC SCH (09:04)
[2020-05-17] MEDS: Vancomycin HCl 1.25 GM in Sodium Chloride 0.9% 250 ML 250 ML IVPB SCH (09:06)
[2020-05-17] MEDS: Losartan 25 MG TAB PO SCH (09:06)
== END 2020-05-17 12:00 | disposition home or self-care (01) | DRG 470 ==
LOC: SURG A 05-15 08:19 → SURG B 05-15 15:39
PROVIDERS: ADMIT Orthopaedic Surgery; ATTEND Orthopaedic Surgery
PROC: 0SRD0J9 Replacement of Left Knee Joint with Synthetic Substitute, Cemented, Open Approach (ICD-10-PCS; principal; 2020-05-15)
PROC: 8E0YXBZ Computer Assisted Procedure of Lower Extremity (ICD-10-PCS; 2020-05-15)
DX: M17.32 Unilateral post-traumatic osteoarthritis, left knee (principal); E11.40 Type 2 diabetes mellitus with diabetic neuropathy, unspecified; E11.319 Type 2 diabetes mellitus with unspecified diabetic retinopathy without macular edema; E78.5 Hyperlipidemia, unspecified; I10 Essential (primary) hypertension; E11.65 Type 2 diabetes mellitus with hyperglycemia; X58.XXXS Exposure to other specified factors, sequela; T14.90XS Injury, unspecified, sequela; Z90.49 Acquired absence of other specified parts of digestive tract; Z79.899 Other long term (current) drug therapy; Z79.4 Long term (current) use of insulin
CPT/HCPCS: 36415; 36416; 85027; C1713; C1776; J0670; J0690; J1100; J1815; J1885; J2250; J2405; J2704; J2795; J3010; J3370; J3490; J7050; Q0163